=== PATIENT | male | born 1965 | race Caucasian/White ===

== ENCOUNTER 2016-09-02 05:48 | Emergency (ER) | payer OTHER ==
[~2016-09-02] VITALS: Ht 185.4 cm; Wt 104.3 kg
[2016-09-02] VITALS (12 sets, daily range): BP systolic 122–156; BP diastolic 66–98
[2016-09-02] MEDS ORDERED: Fleet's Mineral Oil Enema RECTAL ONE (06:30)
--- NOTE | 2016-09-02 06:49 | Emergency Room Report ---
History of Present Illness General Chief Complaint: Abdominal Pain Source: Patient Present Illness HPI The patient presents with difficulty moving his bowels. He states that he has been passing liquid stool. He feels like there is an eight ball it's stuck back there. This is happened to him before. He denies passing blood. He has a history of hepatitis C and has worsened edema in his legs. Apparently he was recently treated with antibiotics. The patient denies any pain, fever, vomiting. He is some abdominal distention. He states that he's had interferon in the past and is being evaluated for other treatment for his hepatitis C. No dysuria or hematuria. He denies chest pain or shortness of breath. When he spoke to the RN, he states he actually has an 8 Ball stuck in his rectum. Allergies: Coded Allergies: No Known Allergies (Unverified , 09/02/16) Patient History Past Medical History: see triage record Social History: Denies: smoking Social History Narrative at home Reviewed Nursing Documentation: PMH: Agreed, PSxH: Agreed Nursing Documentation-PMH History Of Psychiatric Problem: Yes - PTSD Review of Systems All Other Systems: negative except mentioned in HPI Physical Exam Vital Signs Date Time Temp Pulse Resp B/P Pulse Ox O2 Delivery O2 Flow Rate FiO2 09/02/16 06:13 97.5 79 18 122/77 97 Room Air Sp02 EP Interpretation: reviewed, normal General Appearance: well appearing, no apparent distress, GCS 15 Head: normocephalic Eyes: bilateral eye PERRL, bilateral eye normal inspection ENT: moist mucus membranes Neck: supple Respiratory: lungs clear, normal breath sounds Cardiovascular #1: regular rate, rhythm, edema - 2+ pitting Cardiovascular #2: 2+ radial (R) Gastrointestinal: normal bowel sounds, non tender, soft, distended Rectal: heme positive stool, other - FB rectum Musculoskeletal: back normal, gait/station normal, normal range of motion Neurologic: alert, oriented x3, grossly normal Skin: normal inspection, warm/dry Procedures Procedural Sedation Consent: Written Pre-Sedation Assessment: Eval. Immed. Prior to Sed, Pre-proc Edu. done, Plan for Sedation Discuss Airway Assessment (Malampati): II Heart: normal Lungs: normal Abdomen: normal Extremities: normal Procedures/Plans: Other - FB removal Plan for Moderate Sedation: Other - etomidate ASA Score: II Procedure Narrative After etomidate, attempt to remove FB. Unable. Start Time: 11:36 End Time: 11:48 Communication: No Apparent Limitation Mental Status: Awake Respiration: Unlabored Skin Condition: WNL Abdomen: WNL Nausea: NO Vomiting: NO Medical Decision Making Diagnostic Impression: Primary Impression: Foreign body anus/rectum Qualified Codes: T18.5XXA - Foreign body in anus and rectum, initial encounter ER Course Patient presents with lower bowel blockage. Differential includes impaction, diverticulitis, constipation, bowel mosque and amongst others. The patient will be evaluated labs and abdominal x-rays. In addition to that he will receive an enema and gentle IV hydration. Attempt to remove FB. Unable. Attempt pass reis - unable to remove FB. Contact Dr. Godinez to ask who he uses for GI. Discussed with Dr. Flynn. Dr. Flynn states patient need special suction which we do not have. Calling [facility]. Dr. Arce refused to take patient without attempt with procedural sedation. Attempt procedural sedation. Unable to remove FB. Accepted by Dr. Meyer after multiple calls to Dr. Flynn. However, [facility] does not have beds. Bed open. Transfer. Laboratory Tests Test 09/02/16 06:30 White Blood Count 7.1 K/UL (4.8-10.8) Red Blood Count 4.69 M/UL (4.70-6.10) L Hemoglobin 14.6 G/DL (14.2-18.0) Hematocrit 41.8 % (42.0-52.0) L Mean Corpuscular Volume 89 FL (80-99) Mean Corpuscular Hemoglobin 31.1 PG (27.0-31.0) H Mean Corpuscular Hemoglobin Concent 34.9 G/DL (32.0-36.0) Red Cell Distribution Width 11.6 % (11.6-14.8) Platelet Count 213 K/UL (150-450) Mean Platelet Volume 8.1 FL (6.5-10.1) Neutrophils (%) (Auto) 66.6 % (45.0-75.0) Lymphocytes (%) (Auto) 23.0 % (20.0-45.0) Monocytes (%) (Auto) 8.1 % (1.0-10.0) Eosinophils (%) (Auto) 1.3 % (0.0-3.0) Basophils (%) (Auto) 0.9 % (0.0-2.0) Prothrombin Time 10.6 SEC (9.30-11.50) Prothrombin Time INR 1.0 (0.9-1.1) PTT 29 SEC (23-33) Sodium Level 141 mEQ/L (135-145) Potassium Level 3.9 mEQ/L (3.4-4.9) Chloride Level 101 mEQ/L (98-107) Carbon Dioxide Level 26 mEQ/L (20-30) Anion Gap 14 (5-15) Blood Urea Nitrogen 17 mg/dL (7-23) Creatinine 1.0 mg/dL (0.7-1.2) Estimate Glomerular Filtration Rate > 60 mL/min (>60) Glucose Level 95 mg/dL (74-106) Calcium Level 9.2 mg/dL (8.6-10.2) Total Bilirubin 0.7 mg/dL (0.0-1.2) Aspartate Amino Transferase (AST) 49 U/L (5-40) H Alanine Aminotransferase (ALT) 62 U/L (3-41) H Alkaline Phosphatase 45 U/L (40-129) Total Protein 7.5 g/dL (6.6-8.7) Albumin 4.3 g/dL (3.5-5.2) Globulin 3.2 g/dL Albumin/Globulin Ratio 1.3 (1.0-2.7) Lipase 38 U/L (< 60) Other X-Ray Diagnostic Results Other X-Ray Diagnostic Results : X-Ray Ordered: abd EP Interpretation: Yes Findings: other - FB, no SBO, NSBGP Number of Views: 1 Last Vital Signs Date Time Temp Pulse Resp B/P Pulse Ox O2 Delivery O2 Flow Rate FiO2 09/02/16 20:04 70 17 129/78 100 Room Air 09/02/16 18:22 98.2 2.0 Status: unchanged Disposition: XFER SHT-TRM HOSP Condition: Serious - but stable for transfer Jeevan Zaldivar M.D. September 02, 2016 06:49
[2016-09-02 06:52] LABS: BASOPHILS % (AUTO) 0.9 % (0.0-2.0); EOSINOPHILS % (AUTO) 1.3 % (0.0-3.0); MEAN CORPUSCULAR HEMOGLOBIN 31.1 PG (27.0-31.0); MEAN CORPUSCULAR HGB CONC 34.9 G/DL (32.0-36.0); MEAN CORPUSCULAR VOLUME 89 FL (80-99); MEAN PLATELET VOLUME 8.1 FL (6.5-10.1); MONOCYTES % (AUTO) 8.1 % (1.0-10.0); NEUTROPHILS % (AUTO) 66.6 % (45.0-75.0); PLATELET COUNT 213 K/UL (150-450); RED BLOOD COUNT 4.69 M/UL (4.70-6.10); RED CELL DISTRIBUTION WIDTH 11.6 % (11.6-14.8); WHITE BLOOD COUNT 7.1 K/UL (4.8-10.8)
[2016-09-02] MEDS ORDERED: Etomidate 40mg/20ml Inj IV ONE ×3 (06:54→17:00)
[2016-09-02 07:01] LABS: PROTHROMBIN TIME 10.6 SEC (9.30-11.50)
[2016-09-02 07:05] LABS: ALANINE AMINOTRANSFERASE 62 U/L (3-41); ALBUMIN/GLOBULIN RATIO 1.3 (1.0-2.7); ANION GAP 14 (5-15); ASPARTATE AMINO TRANSFERASE 49 U/L (5-40); CALCIUM 9.2 mg/dL (8.6-10.2); CARBON DIOXIDE 26 mEQ/L (20-30); CHLORIDE 101 mEQ/L (98-107); GLOMERULAR FILTRATION RATE > 60 mL/min (>60); HEMOLYSIS 17; LIPASE 38 U/L (< 60); POTASSIUM 3.9 mEQ/L (3.4-4.9); SODIUM 141 mEQ/L (135-145); TOTAL PROTEIN 7.5 g/dL (6.6-8.7)
[2016-09-02] MEDS ORDERED: CLARINEX5 MG ORAL (09:29)
[2016-09-02] MEDS ORDERED: NAPROXEN250 M1 PO (09:29)
[2016-09-02] MEDS ORDERED: TERAZOSIN HCL1 MG ORAL (09:29)
[2016-09-02] MEDS ORDERED: KETOCONAZOLE15 GM TOP (09:29)
--- NOTE | 2016-09-02 12:47 | Diagnostic Imaging Report ---
Indication: Abdominal pain Comparison: None Single view of the abdomen obtained Findings: Bowel gas pattern is nonspecific. There is a rounded foreign body projected over the pelvis presumably within the rectal vault. No mass, ectopic calcifications, or abnormal gas collections are identified. The bones are unremarkable. Impression: Foreign body noted
--- NOTE | 2016-09-03 14:10 | Emergency Room Report ---
History of Present Illness General Chief Complaint: Abdominal Pain Source: Patient Present Illness Allergies: Coded Allergies: No Known Allergies (Unverified , 09/02/16) Nursing Documentation-[facility] History Of Psychiatric Problem: Yes - PTSD Physical Exam Vital Signs Date Time Temp Pulse Resp B/P Pulse Ox O2 Delivery O2 Flow Rate FiO2 09/02/16 06:13 97.5 79 18 122/77 97 Room Air 09/02/16 10:30 2.0 Procedures Procedural Sedation Consent: Written Pre-Sedation Assessment: Eval. Immed. Prior to Sed, Pre-proc Edu. done, Plan for Sedation Discuss Airway Assessment (Malampati): I Heart: normal Lungs: normal Abdomen: normal Extremities: normal Procedures/Plans: Other - rectal foreign body removal Plan for Moderate Sedation: Other - etomidate ASA Score: I Start Time: 17:20 End Time: 17:25 Total Time: 4 Communication: No Apparent Limitation Mental Status: Awake Respiration: Unlabored Skin Condition: WNL Abdomen: WNL Nausea: NO Vomiting: NO Additional Procedure Procedure Narrative Rectal foreign body removal Patient placed in lateral decubitus position. Respiratory therapist at bedside. Charge nurse at bedside. Patient given 15 mg of etomidate for procedural sedation. I was able to insert my hand into rectal cavity however I was unable to palpate or recover the foreign body. Patient awake from procedural sedation. Tolerated without difficulty. No complications Medical Decision Making Diagnostic Impression: Primary Impression: Foreign body anus/rectum Qualified Codes: T18.5XXA - Foreign body in anus and rectum, initial encounter ER Course Patient presented for foreign body in rectum Please see initial note by Dr. Zaldivar for full history and physical Initial attempt to cover the foreign body was unsuccessful while patient was awake and under procedural sedation Case discussed with surgery here and GI. They stable do not have the equipment required to effectively recover the foreign body. recommend transferred Case initial discussed with [facility]. there was an accepting physician however no beds were available In the meanwhile I made another attempt to recover the foreign body. I provided procedure sedation using etomidate and made another attempt to recover the foreign body. I was unable to locate the foreign body; and likely has ascended further We did make contact with insurance company to see if they had beds available at contracted facilities to accommodate the patient In the meanwhile [facility] provided bed availability and the patient was transferred as previously planned Last Vital Signs Date Time Temp Pulse Resp B/P Pulse Ox O2 Delivery O2 Flow Rate FiO2 09/02/16 19:38 70 17 129/78 100 Room Air 09/02/16 18:22 98.2 2.0 Status: unchanged Disposition: XFER SHT-TRM HOSP Condition: Serious Referrals: [employer] [facility],REFERYONNY (PCP) DIMAS SALAS M.D. September 03, 2016 14:10
== END 2016-09-02 19:38 | disposition short-term general hospital (02) ==
LOC: EMR 06:53 → EDBEDREQ 09:05 → EMR 19:38
DX: T18.5XXA Foreign body in anus and rectum, initial encounter (principal); X58.XXXA Exposure to other specified factors, initial encounter; Y92.89 Other specified places as the place of occurrence of the external cause; Y99.9 Unspecified external cause status; B19.20 Unspecified viral hepatitis C without hepatic coma; R60.9 Edema, unspecified; F43.10 Post-traumatic stress disorder, unspecified
CPT/HCPCS: 36415; 45915; 74000; 80053; 83690; 85025; 85610; 85730; 96360; 96361; 96374; 96375; 99285; Z7502